=== PATIENT | male | born 1970 | race Caucasian/White ===

== ENCOUNTER 2018-06-14 12:20 | Inpatient (IN) | payer OTHER ==
[2018-06-14] MEDS ORDERED: NACL 0.9% 3 ML SYG IV (13:30)
[2018-06-14] MEDS ORDERED: ONDANSETRON 4 MG INJ IV (13:30)
[2018-06-14] MEDS ORDERED: ACETAMINOPHEN 325 MG TAB PO (13:30)
[2018-06-14] MEDS: HYDROCODONE/APAP (5/325) TAB PO ×2 (13:49→20:01)
[2018-06-14] MEDS: SENNA TAB PO ×2 (15:09→20:01)
[2018-06-14] MEDS: NS + KCL 20 MEQ 1,000 ML IV ×2 (15:09→21:10)
[2018-06-15] MEDS: NS + KCL 20 MEQ 1,000 ML IV ×3 (00:50→09:02)
[2018-06-15] MEDS: HYDROCODONE/APAP (5/325) TAB PO ×4 (01:54→21:08)
[2018-06-15 05:37] LABS: ADD MAN DIFF? NO
[2018-06-15 05:39] LABS: ABNORMAL IP MESSAGE 1; BASOPHIL # 0.1 10^3/ul (0.0-0.1); BASOPHILS % 0.4 % (0.0-2.0); EOSINOPHILS % 0.2 % (0.0-7.0); HEMOGLOBIN 14.8 g/dl (14.0-18.0); LYMPHOCYTES # 1.8 10^3/ul (0.8-2.9); LYMPHOCYTES % 13.5 % (15.0-51.0); MEAN CORPUSCULAR HEMOGLOBIN 29.8 pg (29.0-33.0); MEAN CORPUSCULAR HGB CONC 33.6 g/dl (32.0-37.0); MEAN CORPUSCULAR VOLUME 88.5 fl (82.0-101.0); MEAN PLATELET VOLUME 11.7 fl (7.4-10.4); MONOCYTE # 1.3 10^3/ul (0.3-0.9); NEUTROPHIL # 9.7 10^3/ul (1.6-7.5); NEUTROPHILS % 75.1 % (39.0-77.0); PLATELET COUNT 92 10^3/UL (140-415); POSITIVE DIFF @See below; RED BLOOD COUNT 4.97 10^6/ul (4.70-6.10); RED CELL DISTRIBUTION WIDTH 13.4 % (11.5-14.5)
[2018-06-15] MEDS: PANTOPRAZOLE 40 MG INJ IV (05:59)
[2018-06-15 06:03] LABS: LIPASE 492 U/L (23-300)
[2018-06-15 06:08] LABS: ALANINE AMINOTRANSFERASE 83 IU/L (13-69); ALBUMIN 3.5 g/dl (3.3-4.9); ALBUMIN/GLOBULIN RATIO 0.83; ALKALINE PHOSPHATASE 162 IU/L (42-121); ANION GAP 8 (5-13); ASPARTATE AMINO TRANSFERASE 105 IU/L (15-46); BILIRUBIN,INDIRECT 2.1 mg/dl (0-1.1); BILIRUBIN,TOTAL 3.8 mg/dl (0.2-1.3); BLOOD UREA NITROGEN 9 mg/dl (7-20); CALCIUM 8.6 mg/dl (8.4-10.2); CARBON DIOXIDE 28 mmol/L (21-31); CHLORIDE 98 mmol/L (97-110); CHOL/HDL RATIO 5.6 RATIO; CHOLESTEROL 124 mg/dl (100-200); CREATININE 0.67 mg/dl (0.61-1.24); Estimated GFR > 60 mL/min (>60); GLUCOSE 206 mg/dl (70-220); HDL CHOLESTEROL 22 mg/dl (27-67); LDL CHOLESTEROL,CALCULATED 54 mg/dl; MAGNESIUM 1.6 mg/dl (1.7-2.5); POTASSIUM 4.7 mmol/L (3.5-5.1); SODIUM 134 mmol/L (135-144); TOTAL PROTEIN 7.7 g/dl (6.1-8.1); TRIGLYCERIDES 242 mg/dl (0-149)
[2018-06-15 06:30] LABS: HEMOGLOBIN A1C 9.4 % (0-5.9)
[2018-06-15] MEDS: SENNA TAB PO ×2 (08:26→21:08)
[2018-06-15] MEDS: ENOXAPARIN 40 MG/0.4 ML SYG SC (08:34)
[2018-06-15] MEDS: SOD CHLORIDE 0.9% 1,000 ML IV ×2 (13:03→21:09)
[2018-06-16] MEDS: HYDROCODONE/APAP (5/325) TAB PO ×3 (02:01→21:29)
[2018-06-16] MEDS: HYDROmorphONE 0.5 MG/0.5 ML SYG IV ×2 (02:01→09:06)
[2018-06-16] MEDS ORDERED: GLUCAGON 1 MG INJ IM (05:00)
[2018-06-16] MEDS ORDERED: DEXTROSE 50% 50 ML SYRINGE IV ×2 (05:00)
[2018-06-16] MEDS ORDERED: GLUCOSE GEL 15 GRAM TUBE BUCCAL (05:00)
[2018-06-16] MEDS ORDERED: GLUCOSE GEL 15 GRAM TUBE PO ×2 (05:00)
[2018-06-16 06:12] LABS: ADD MAN DIFF? NO
[2018-06-16 06:21] LABS: ABNORMAL IP MESSAGE 1; BASOPHILS % 0.4 % (0.0-2.0); EOSINOPHILS # 0.1 10^3/ul (0.0-0.5); EOSINOPHILS % 0.6 % (0.0-7.0); HEMATOCRIT 39.6 % (42.0-52.0); HEMOGLOBIN 13.3 g/dl (14.0-18.0); LYMPHOCYTES # 1.7 10^3/ul (0.8-2.9); MEAN CORPUSCULAR HEMOGLOBIN 29.6 pg (29.0-33.0); MEAN CORPUSCULAR HGB CONC 33.6 g/dl (32.0-37.0); MEAN CORPUSCULAR VOLUME 88.2 fl (82.0-101.0); MEAN PLATELET VOLUME 11.1 fl (7.4-10.4); MONOCYTE # 1.2 10^3/ul (0.3-0.9); MONOCYTES % 12.4 % (0.0-11.0); NEUTROPHIL # 6.6 10^3/ul (1.6-7.5); NEUTROPHILS % 67.8 % (39.0-77.0); PLATELET COUNT 87 10^3/UL (140-415); POSITIVE DIFF @See below; RED BLOOD COUNT 4.49 10^6/ul (4.70-6.10); RED CELL DISTRIBUTION WIDTH 13.4 % (11.5-14.5)
[2018-06-16 06:21] LABS: WHITE BLOOD COUNT 9.7 10^3/ul (4.8-10.8)
[2018-06-16] MEDS: SOD CHLORIDE 0.9% 1,000 ML IV ×2 (06:24→13:00)
[2018-06-16] MEDS: PANTOPRAZOLE 40 MG INJ IV (06:25)
[2018-06-16 07:16] LABS: ANION GAP 7 (5-13); BLOOD UREA NITROGEN 7 mg/dl (7-20); CARBON DIOXIDE 28 mmol/L (21-31); CHLORIDE 98 mmol/L (97-110); Estimated GFR > 60 mL/min (>60); GLUCOSE 187 mg/dl (70-220); MAGNESIUM 1.8 mg/dl (1.7-2.5); PHOSPHORUS 2.4 mg/dl (2.5-4.9); POTASSIUM 3.4 mmol/L (3.5-5.1); SODIUM 133 mmol/L (135-144)
[2018-06-16] MEDS: SENNA TAB PO ×2 (08:18→21:28)
[2018-06-16] MEDS: INSULIN ASPART [NOVOLOG] 3 ML PEN SC ×4 (08:20→21:00)
[2018-06-16] MEDS: ENOXAPARIN 40 MG/0.4 ML SYG SC (09:00)
[2018-06-16] MEDS: POTASSIUM CHLORIDE 20 MEQ POWDER FOR ORAL SOLN PO (14:53)
[2018-06-16] MEDS: POLYETHYLENE GLYCOL 17 GM PACKET PO (14:53)
[2018-06-16] MEDS: MAGNESIUM SULFATE 2 GM/50 ML 50 ML IVPB (15:20)
[2018-06-16] MEDS: ACCU-CHEK XX (23:11)
[2018-06-17] MEDS: HYDROCODONE/APAP (5/325) TAB PO (01:27)
[2018-06-17] MEDS: PANTOPRAZOLE (EC) 40 MG TAB PO (05:42)
[2018-06-17] MEDS: POLYETHYLENE GLYCOL 17 GM PACKET PO (08:12)
[2018-06-17] MEDS: INSULIN ASPART [NOVOLOG] 3 ML PEN SC ×2 (08:12→12:00)
[2018-06-17] MEDS: SENNA TAB PO (08:13)
[2018-06-17 09:26] LABS: ADD MAN DIFF? NO
[2018-06-17 09:30] LABS: WHITE BLOOD COUNT 7.4 10^3/ul (4.8-10.8)
[2018-06-17 09:30] LABS: BASOPHILS % 0.5 % (0.0-2.0); EOSINOPHILS # 0.1 10^3/ul (0.0-0.5); EOSINOPHILS % 1.8 % (0.0-7.0); HEMATOCRIT 37.7 % (42.0-52.0); HEMOGLOBIN 12.6 g/dl (14.0-18.0); LYMPHOCYTES # 1.5 10^3/ul (0.8-2.9); LYMPHOCYTES % 20.1 % (15.0-51.0); MEAN CORPUSCULAR HEMOGLOBIN 29.8 pg (29.0-33.0); MEAN CORPUSCULAR HGB CONC 33.4 g/dl (32.0-37.0); MEAN CORPUSCULAR VOLUME 89.1 fl (82.0-101.0); MEAN PLATELET VOLUME 10.5 fl (7.4-10.4); MONOCYTE # 1.1 10^3/ul (0.3-0.9); MONOCYTES % 15.1 % (0.0-11.0); NEUTROPHIL # 4.5 10^3/ul (1.6-7.5); NEUTROPHILS % 61.3 % (39.0-77.0); PLATELET COUNT 114 10^3/UL (140-415); RED BLOOD COUNT 4.23 10^6/ul (4.70-6.10)
[2018-06-17 09:45] LABS: ANION GAP 10 (5-13); BLOOD UREA NITROGEN 8 mg/dl (7-20); CALCIUM 8.4 mg/dl (8.4-10.2); CARBON DIOXIDE 25 mmol/L (21-31); CHLORIDE 102 mmol/L (97-110); CREATININE 0.48 mg/dl (0.61-1.24); Estimated GFR > 60 mL/min (>60); GLUCOSE 194 mg/dl (70-220); POTASSIUM 3.4 mmol/L (3.5-5.1); SODIUM 137 mmol/L (135-144)
== END 2018-06-17 14:26 | disposition home or self-care (01) | DRG 439 ==
LOC: 2NE 12:20
DX: K85.90 Acute pancreatitis without necrosis or infection, unspecified (principal); Z68.41 Body mass index [BMI] 40.0-44.9, adult; E66.9 Obesity, unspecified; Z72.0 Tobacco use; E11.9 Type 2 diabetes mellitus without complications
CPT/HCPCS: 76705; 80048; 80053; 80061; 82962; 83036; 83690; 83735; 84100; 84443; 85025; 87081